=== PATIENT | male | born 2000 | race Caucasian/White ===

== ENCOUNTER 2019-09-21 12:31 | Emergency (ER) | payer OTHER, MEDICAID, SELFPAY ==
[2019-09-21 12:37] VITALS: BP 135/94; PULSE 112; RESP 20; TEMP 36.9; O2SAT 100; BMI 21.5
--- NOTE | 2019-09-21 13:26 | ED.GENADULT ---
HPI - General Adult General Chief complaint: Upper Respiratory Symptoms Stated complaint: sore throat Time Seen by Provider: 09/21/19 12:45 Source: patient and family Mode of arrival: Ambulatory Limitations: no limitations History of Present Illness HPI narrative: Otherwise healthy 19-year-old male here for evaluation of 2 days of a sore throat. He denies a cough. Has had subjective fevers. Does have neck pain. Is able to swallow and drink need however does hurt him to do so. Has dried sore throat loss in his and sprays which only helped for very small period of time. Has taken Tylenol. No travel. Related Data Previous Rx's Medication Instructions Recorded citalopram 40 mg tablet 40 mg PO DAILY 30 Days #30 tab MDD 04/01/19 40 minutes omeprazole 10 mg capsule,delayed 10 mg PO DAILY #30 cap MDD 20 mg 04/01/19 release trazodone 50 mg tablet 50 mg PO DAILY #30 tab MDD 100 mg 04/01/19 melatonin 3 mg tablet 3 mg PO BEDTIME PRN #30 tab MDD 9 05/29/19 mg bupropion HCl 100 mg tablet,12 hr 200 mg PO DAILY #60 each MDD 200 mg 08/25/19 sustained-release methylphenidate HCl 5 mg tablet 5 mg PO BID #30 tab MDD 45 mg 09/04/19 Allergies Allergy/AdvReac Type Severity Reaction Status Date / Time No Known Drug Allergies Allergy Verified 09/04/19 12:52 Review of Systems Constitutional Constitutional: Reports fever(s) and Denies headache(s) ENT Ears, Nose, Mouth, and Throat: Denies dental pain, Denies vertigo, Denies dizziness, Denies headache(s), Denies mouth lesions, Denies nasal congestion, Denies neck mass, Reports neck pain, Denies sinus pressure, Reports sore throat, Reports throat swelling and Denies tongue swelling Cardiovascular Cardiovascular: Denies chest pain and Denies dyspnea Respiratory Respiratory: Denies dyspnea Gastrointestinal Gastrointestinal: Denies abdominal pain, Denies nausea and Denies vomiting Musculoskeletal Musculoskeletal: Denies arthralgias and Reports neck pain Integumentary/Breasts Skin/Breast: Denies rash Neurologic Neurologic: Denies behavioral changes, Denies vertigo, Denies dizziness and Denies headache(s) Psychiatric Psychiatric: Denies behavioral changes Hematologic/Lymphatic Hematologic/Lymphatic: Denies easy bleeding and Denies easy bruising Allergic/Immunologic Allergic/Immunologic: Reports throat swelling and Denies tongue swelling Patient History Medical History Chronic vomiting (Inactive) Pancreatitis (Inactive) Social History Smoking Status: Never smoker Smoking Status: Never smoker Substance Use Type: does not use Exam Initial Vital Signs Initial Vital Signs: Vital Signs Temperature 98.4 F 09/21/19 12:37 Pulse Rate 112 H 09/21/19 12:37 Respiratory Rate 20 09/21/19 12:37 Blood Pressure 135/94 H 09/21/19 12:37 Pulse Oximetry 100 09/21/19 12:37 Const General: cooperative, comfortable and well developed Limitations: mental status not altered HENMT Head: normal to inspection and normocephalic Ears: TM's normal bilaterally Nose: external nose normal Face and sinus: normal facial exam Mouth: oral mucosae normal, lip normal, tongue normal, No drooling and No abnormal TMJ Teeth and gingiva: dentition normal Throat: uvula midline, no peritonsillar masses and other (Exudates) Neck Lymphatic: lymphadenopathy Cardio Rate: tachycardic Skin Lesions: no lesions Rashes: no rashes Neuro General: alert and awake Cognition: normal cognition Speech: speech normal Extrem General: normal to inspection and capillary refill normal Psych Appearance: grossly normal and well kempt Course Orders Ordered: Discontinued Medications Dexamethasone (Decadron) 12 mg PO NOW ONE Stop: 09/21/19 13:28 Last Admin: 09/21/19 13:47 Dose: 12 mg Documented by: MEISENB Penicillin G Benzathine (Bicillin L-A) 1,200,000 unit IM NOW ONE Stop: 09/21/19 13:28 Last Admin: 09/21/19 13:48 Dose: 1,200,000 unit Documented by: MEISENB Vital Signs Vital signs: Vital Signs - 8 hr 09/21/19 12:37 09/21/19 14:08 Temperature 98.4 F Pulse Rate 112 H 95 H Respiratory Rate 20 18 Blood Pressure 135/94 H 126/70 Pulse Oximetry 100 98 Medical Decision Making Lab Data Labs: Point of Care Testing Rapid Strep A Negative Point of care testing: Point of Care Testing Rapid Strep A Negative MDM Narrative Medical decision making narrative: Patient's rapid strep was negative however his clinical presentation is consistent with strep throat. He has a lack of cough, exudates, lymphadenopathy and subjective fevers. Low suspicion for peritonsillar abscess or retropharyngeal abscess given his clinical presentation. Had a discussion both with him and his father who is at bedside about either presumptively treating him with antibiotics and the risks and benefits of this versus obtaining a throat culture in waiting for this result and the risks and benefits of this decision. After this discussion they did opt to be treated. Discussed receiving either a IM injection versus oral medications and the patient opted for the IM injection. We discussed return precautions and follow-up instructions. Expressed understanding and agreement. Discharge Plan Departure Patient Disposition: Home Clinical Impression: Pharyngitis Qualifiers: Pharyngitis/tonsillitis etiology: streptococcus Qualified Code(s): J02.0 - Streptococcal pharyngitis Discharge Date/Time: 09/21/19 14:09 Instructions: Sore Throat Activity Restrictions/Additional Instructions: You can continue to take the sore throat lozenges and sprays as needed. You can eat and drink as tolerated. Return to the emergency department for any new or worsening symptoms Prescriptions: No Action melatonin 3 mg tablet 3 mg PO BEDTIME MDD 9 mg PRN (Reason: sleep) Qty: 30 RF: 3 citalopram 40 mg tablet 40 mg PO DAILY MDD 40 minutes 30 Days Qty: 30 RF: 5 omeprazole 10 mg capsule,delayed release(DR/EC) 10 mg PO DAILY MDD 20 mg Qty: 30 RF: 3 trazodone 50 mg tablet 50 mg PO DAILY MDD 100 mg Qty: 30 RF: 3 methylphenidate HCl 5 mg tablet 5 mg PO BID MDD 45 mg Qty: 30 RF: 0 bupropion HCl 100 mg tablet sustained-release 12 hr 200 mg PO DAILY MDD 200 mg Qty: 60 RF: 3 Referrals: Jayden Cedeño MD [Primary Care Provider] -
[2019-09-21] MEDS: dexAMETHasone 4 MG TABLET 12 MG PO (13:47)
[2019-09-21] MEDS: PENICILLIN G BENZATHINE 1,200,000 UNIT/2 ML SYRINGE 1200000 UNIT IM (13:48)
[2019-09-21 14:08] VITALS: BP 126/70; PULSE 95; RESP 18; O2SAT 98
== END 2019-09-21 14:09 | disposition home or self-care (01) ==
PROVIDERS: Emergency Provider Emergency Medicine; Family Provider Family Medicine; PCP Family Medicine
DX: J02.0 Streptococcal pharyngitis (principal); R50.9 Fever, unspecified
CPT/HCPCS: 87880; 96372; 99283; J0561

== ENCOUNTER → 2021-05-26 13:54 | Outpatient (CLI) | payer OTHER, MEDICAID, SELFPAY ==
[2021-05-26 15:11] LABS: Alanine Aminotransferase 31 IU/L (<50); Albumin 4.9 g/dL (3.5-5.0); Albumin Globulin Ratio 1.9 (1.0-2.8); Alkaline Phosphatase 52 U/L (38-126); Aspartate Aminotransferase 24 IU/L (17-59); BUN Creatinine Ratio 11.7 (6-22); Bilirubin Total 0.7 mg/dL (0.2-1.3); Blood Urea Nitrogen 13 mg/dL (9-20); Calcium 10.2 mg/dL (8.4-10.2); Carbon Dioxide 29 mmol/L (22-32); Chloride 102 mmol/L (98-107); Estimated Glomerular Filt Rate > 60.0 mL/min (>60); Globulin 2.6 g/dL (1.7-4.1); Glucose 90 mg/dL (70-100); HEMOLYSIS < 15 (0-50); Potassium 4.2 mmol/L (3.4-5.1); Sodium 140 mmol/L (137-145); Total Protein 7.5 g/dL (6.3-8.2)
[2021-05-26 15:25] LABS: Free T4, Direct Thyroxine 0.92 ng/dL (0.78-2.19)
[2021-05-26 15:39] LABS: Thyroid Stimulating Hormone 1.69 uIU/mL (0.47-4.68)
[2021-05-27 08:09] LABS: UR Morphine/Opiate cutoff 300 Negative (Negative); Ur Creatinine Normal (Normal); Ur Specific Gravity Normal (Normal); Urine Amphetamines Negative (Negative); Urine Barbiturates Negative (Negative); Urine Benzodiazepines Negative (Negative); Urine Cocaine Negative (Negative); Urine MDMA Negative (Negative); Urine Methadone Negative (Negative); Urine Methamphetamines Negative (Negative); Urine Oxycodone Negative (Negative); Urine Phencyclidine Negative (Negative); Urine Tetrahydrocannabinol Negative (Negative); Urine Tricyclic Antidepressant Negative (Negative); Urine pH Normal (Normal)
== END ==
PROVIDERS: Family Provider Family Medicine; PCP Family Medicine; Referring Provider Psychiatry & Neurology Psychiatry; Visit Provider Psychiatry & Neurology Psychiatry
DX: F33.2 Major depressive disorder, recurrent severe without psychotic features (principal); F41.0 Panic disorder [episodic paroxysmal anxiety]; F41.1 Generalized anxiety disorder; F90.2 Attention-deficit hyperactivity disorder, combined type
CPT/HCPCS: 36415; 80053; 80305; 84439; 84443; 99214

== ENCOUNTER 2023-01-04 12:31 | Emergency (ER) | payer OTHER, MEDICAID, SELFPAY ==
[2023-01-04] VITALS (9 sets, daily range): BP systolic 117–138; BP diastolic 67–81; PULSE 82–109; RESP 15; TEMP 37.2; O2SAT 95–97; BMI 22.9
--- NOTE | 2023-01-04 19:51 | ED.GENADULT ---
HPI - General Adult General Chief complaint: Dizziness Stated complaint: Bad interaction w/ anxiety meds Time Seen by Provider: 01/04/23 19:49 Source: patient Mode of arrival: Ambulatory Limitations: no limitations History of Present Illness HPI narrative: This is a 22-year-old male with history of anxiety and depression who had stopped his medications about 2 months ago. Patient just restarted them on Sunday he restarted his bupropion, buspirone as well as citalopram at his prior doses all at once. Patient states this was on Sunday. He states the following day he started feeling nauseated, shaky started having nausea vomiting into Sunday. Patient states he has not vomited today but has not tried to eat or drink anything. Morrice warm but states his temperature was low at home. He is felt like he was having some spinning of the room and dizziness. He does state he is had vertigo symptoms once before when he started 1 of these medications. Patient denies any headache, no chest pain, no shortness of breath. No persistent vomiting at this time. States no diarrhea or constipation. He states no dysuria, urgency or frequency. No dark urine. No muscle aches. He states he felt twitchy yesterday but does not feel so today. Patient states that he called his psychiatry provider today and they told him to come to be evaluated. Related Data Previous Rx's Medication Instructions Recorded omeprazole 10 mg capsule,delayed 10 mg PO DAILY Gastritis #30 caps 04/01/19 release buspirone 15 mg tablet 15 mg PO TID #270 tabs 12/28/21 citalopram 40 mg tablet 40 mg PO DAILY #90 tabs 12/28/21 bupropion HCl 150 mg 24 hr tablet, 150 mg PO QAM #30 tabs 10/31/22 extended release Allergies Allergy/AdvReac Type Severity Reaction Status Date / Time No Known Drug Allergies Allergy Verified 01/04/23 12:44 Review of Systems Review of Systems ROS Unobtainable: All systems reviewed & are unremarkable except as noted in HPI and below Patient History Medical History Chronic vomiting Pancreatitis Social History Smoking Status: Never smoker Smoking Status: Never smoker alcohol intake frequency: holidays/special occasions only Substance Use Type: does not use Exam Narrative Exam Narrative: GENERAL: Alert and oriented x three, male in mild distress. HEENT: Head normocephalic, atraumatic, EOMI, no nystagmus, pupils reactive, face symmetric, moist mucous membranes, no facial droop. NECK: Supple, full range of motion CARDIOVASCULAR: Regular rate and rhythm without murmurs, rubs or gallops. RESPIRATORY: Breath sounds equal bilaterally, no wheezes rales or rhonchi. ABDOMEN: Soft, nontender. Normoactive bowel sounds all 4 quadrants. No guarding or rebound, rigidity, no mass : No CVA tenderness EXTREMITIES: Normal range of motion, no clubbing or edema. Neurovascularly intact. 2+ pulses upper and lower extremities. NEUROLOGICAL: Cranial nerves II through XII grossly intact. Moving all extremities. 2/4 DTRs upper and lower extremities. No clonus. Patient has normal range of motion, no rigidity. SKIN: Warm, dry, no petechiae, no rashes or lesions. Initial Vital Signs Initial Vital Signs: Vital Signs Temperature 99.0 F 01/04/23 12:44 Pulse Rate 109 H 01/04/23 12:44 Respiratory Rate 15 01/04/23 12:44 Blood Pressure 138/81 01/04/23 12:44 Pulse Oximetry 97 01/04/23 12:44 Oxygen Delivery Method Room Air 01/04/23 12:44 Course Orders Ordered: ED Orders 01/04/23 20:15 EKG-12 Lead Stat 01/04/23 20:20 CBC Auto Diff [Complete Blood Count AUTO DIFF] Stat CMP [Comprehensive Metabolic Panel] Stat Lipase Stat MAG [Magnesium] Stat Discontinued Medications Sodium Chloride (Normal Saline 0.9%) 1,000 mls @ 1,000 mls/hr IV BOLUS ONE Stop: 01/04/23 21:14 Last Infusion: 01/04/23 21:28 Dose: 0 mls/hr Documented By: Admin: 01/04/23 20:35 Dose: 1,000 mls/hr Documented By: CLIFF Ondansetron HCl (Ondansetron 4 Mg Odt) 4 mg SL NOW ONE Stop: 01/04/23 20:03 Last Admin: 01/04/23 20:08 Dose: 4 mg Documented By: CLIFF Ondansetron HCl (Ondansetron 4 Mg Odt Prepack) 1 bottle MISC SEEINSTR ONE Stop: 01/04/23 21:16 Last Admin: 01/04/23 21:27 Dose: 1 bottle Documented By: YUSUF Vital Signs Vital signs: Vital Signs - 8 hr 01/04/23 17:38 01/04/23 17:38 01/04/23 18:00 Pulse Rate 96 H Blood Pressure 133/72 136/69 Pulse Oximetry 96 Oxygen Delivery Method 01/04/23 18:00 01/04/23 18:30 01/04/23 18:30 Pulse Rate 93 H 88 Blood Pressure 130/71 Pulse Oximetry 96 97 Oxygen Delivery Method Room Air 01/04/23 19:00 01/04/23 19:00 01/04/23 19:30 Pulse Rate 94 H Blood Pressure 129/75 128/77 Pulse Oximetry 96 Oxygen Delivery Method 01/04/23 19:30 01/04/23 20:00 01/04/23 20:00 Pulse Rate 89 87 Blood Pressure 123/81 Pulse Oximetry 96 95 Oxygen Delivery Method Room Air 01/04/23 20:30 01/04/23 20:30 01/04/23 21:00 Pulse Rate 82 Blood Pressure 123/73 117/67 Pulse Oximetry 95 Oxygen Delivery Method 01/04/23 21:00 Pulse Rate 85 Blood Pressure Pulse Oximetry 97 Oxygen Delivery Method Room Air Medical Decision Making Lab Data 01/04/23 20:20 01/04/23 20:20 Labs: Lab Results 01/04/23 01/04/23 Range/Units 20:20 20:20 WBC 8.1 (4.5-11.0) X10^3/uL RBC 4.84 (4.5-5.9) X10^6/uL Hgb 14.8 (13.5-17.5) g/dL Hct 42.6 (41-53) % MCV 87.8 (80-100) fL MCH 30.5 (26-34) PG MCHC 34.7 (30-36) % RDW 12.7 (11.6-14.8) % Plt Count 307 (150-400) X10^3/uL Neut % (Auto) 65.2 (50-75) % Lymph % (Auto) 27.0 (25-40) % [place] % (Auto) 7.3 (3-14) % Eos % (Auto) 0.3 L (2-4) % Baso % (Auto) 0.2 (0-2) % Neut # (Auto) 5300 (4612-5399) /uL Lymph # (Auto) 2200 (4321-1837) /uL [place] # (Auto) 600 (0-900) /uL Eos # (Auto) 0 (0-450) /uL Baso # (Auto) 0 (0-100) /uL Sodium 139 (137-145) mmol/L Potassium 3.5 (3.4-5.1) mmol/L Chloride 101 (98-107) mmol/L Carbon Dioxide 24 (22-32) mmol/L BUN 12 (9-20) mg/dL Creatinine 0.88 (0.66-1.25) mg/dL Estimated GFR > 60 (>60) mL/min BUN/Creatinine Ratio 13.6 (6-22) Glucose 85 (70-100) mg/dL Calcium 9.3 (8.4-10.2) mg/dL Magnesium 2.0 (1.6-2.3) mg/dL Total Bilirubin 1.0 (0.2-1.3) mg/dL AST 22 (17-59) IU/L ALT 21 (<50) IU/L Alkaline Phosphatase 47 (38-126) U/L Total Protein 7.6 (6.3-8.2) g/dL Albumin 4.6 (3.5-5.0) g/dL Globulin 3.0 (1.7-4.1) g/dL Albumin/Globulin Ratio 1.5 (1.0-2.8) Lipase 118 (23-300) U/L ECG Data Attestation: I personally reviewed and interpreted this ECG as follows: Prior ECG tracings: not available for review Interpretation: Sinus rhythm rate 80 [place] 148 QRS is 92 and QTC 435. No acute ST changes. No priors found in cardioserver. MDM Narrative Medical decision making narrative: 22-year-old male who restarted his citalopram, buspirone bupropion on Sunday at his typical doses after having taken them for many years and having stopped about 1-2 months ago. Patient states he is not sure if they were titrated up in the past he states he does not think they were all started at once. He does note a little bit of vertigo which he states he had once when he started 1 of his medications. I suspect that the combination of all these medications being restarted at once caused his symptoms but labs were obtained, EKG and fluids. Patient's exam overall is reassuring. Labs including CBC and CMP show no acute change. EKG does not show any acute changes. Patient is feeling much improved. He is going to reach out to his psychiatry team tomorrow morning for discussion about the best way to restart his medications. Patient feels safe to return no SI or HI or other concerning changes here today. Discharge Plan Departure Patient Disposition: Home Clinical Impression: Medication adverse effect Activity Restrictions/Additional Instructions: Please call your psychiatry team 1st thing in the morning to help restart your medications in a way that will decrease side effects. You may take Zofran 1 tablet every 6 hours as needed. Please return for new or worse symptoms. Prescriptions: No Action buspirone 15 mg tablet 15 mg PO TID Qty: 270 3RF citalopram 40 mg tablet 40 mg PO DAILY Qty: 90 3RF bupropion HCl 150 mg tablet extended release 24 hr 150 mg PO QAM Qty: 30 3RF omeprazole 10 mg capsule,delayed release(DR/EC) 10 mg PO DAILY MDD 20 mg Qty: 30 3RF Rx Instructions: Take 1-2 caps daily as needed for stomach pains Referrals: Miscellaneous,Doctor, MD [Primary Care Provider] - Stand Alone Forms: Patient Portal/API, Work Release Note
[2023-01-04] MEDS: ONDANSETRON 4 MG ODT SL (20:08)
[2023-01-04] MEDS: SODIUM CHLORIDE 0.9% 1,000 ML 1000 ML IV (20:35)
[2023-01-04 20:37] LABS: Add Manual Diff / Slide Review NO; Basophils Absolute Auto 0 /uL (0-100); Basophils Percent Auto 0.2 % (0-2); Eosinophils Absolute Auto 0 /uL (0-450); Eosinophils Percent Auto 0.3 % (2-4); Hematocrit 42.6 % (41-53); Hemoglobin 14.8 g/dL (13.5-17.5); Lymphocytes Absolute Auto 2200 /uL (1100-4500); Mean Corpuscular HGB Conc 34.7 % (30-36); Mean Corpuscular Hemoglobin 30.5 PG (26-34); Mean Corpuscular Volume 87.8 fL (80-100); Monocytes Absolute Auto 600 /uL (0-900); Monocytes Percent Auto 7.3 % (3-14); Neutrophils Absolute Auto 5300 /uL (1500-7000); Neutrophils Percent Auto 65.2 % (50-75); Platelet Count 307 X10^3/uL (150-400); Red Blood Cell Count 4.84 X10^6/uL (4.5-5.9); Red Cell Distribution Width 12.7 % (11.6-14.8); White Blood Cell Count 8.1 X10^3/uL (4.5-11.0)
[2023-01-04 20:51] LABS: Alanine Aminotransferase 21 IU/L (<50); Albumin 4.6 g/dL (3.5-5.0); Albumin Globulin Ratio 1.5 (1.0-2.8); Alkaline Phosphatase 47 U/L (38-126); Aspartate Aminotransferase 22 IU/L (17-59); BUN Creatinine Ratio 13.6 (6-22); Blood Urea Nitrogen 12 mg/dL (9-20); Calcium 9.3 mg/dL (8.4-10.2); Carbon Dioxide 24 mmol/L (22-32); Chloride 101 mmol/L (98-107); Estimated Glomerular Filt Rate > 60 mL/min (>60); Glucose 85 mg/dL (70-100); HEMOLYSIS < 15 (0-50); Lipase 118 U/L (23-300); Potassium 3.5 mmol/L (3.4-5.1); Sodium 139 mmol/L (137-145); Total Protein 7.6 g/dL (6.3-8.2)
[2023-01-04] MEDS: ONDANSETRON 4 MG ODT PREPACK 1 BOTTLE MISC (21:27)
== END 2023-01-04 21:29 | disposition home or self-care (01) ==
PROVIDERS: Emergency Provider Emergency Medicine; Family Provider Family Medicine
DX: T50.995A Adverse effect of other drugs, medicaments and biological substances, initial encounter (principal); R42 Dizziness and giddiness; R11.2 Nausea with vomiting, unspecified
CPT/HCPCS: 36415; 80053; 83690; 83735; 85025; 93005; 96360; 99284